=== PATIENT | male | born 1990 | race Caucasian/White ===

== ENCOUNTER 2023-10-15 21:40 | Emergency (ER) | payer OTHER ==
[~2023-10-15] VITALS: Ht 180.3 cm; Wt 127.0 kg
[2023-10-15 21:45] VITALS: BP 166/115; TEMP 98.4; O2SAT 100
[2023-10-15 21:53] VITALS: PULSE 100; RESP 16
[2023-10-16] MEDS ORDERED: NAPR-1176 MT (01:43)
== END 2023-10-16 02:04 | disposition home or self-care (01) ==
LOC: ER 21:40
DX: N50.819 Testicular pain, unspecified (principal)
CPT/HCPCS: 99281